=== PATIENT | female | born 1990 ===

== ENCOUNTER 2017-09-20 03:25 | Emergency (ER) | payer SELFPAY ==
--- NOTE | 2017-09-20 06:33 | C.PDOC ---
Time Seen by Provider: 09/20/17 03:42 Chief Complaint (Nursing): Substance Abuse History Per: Patient, EMS History/Exam Limitations: intoxication Onset/Duration Of Symptoms: Unknown Current Symptoms Are (Timing): Still Present Modifying Factor(s): Alcohol, Cocaine Severity: Severe Associated Symptoms: Agitation Additional History Per: Prior Records Past Medical History Reviewed: Historical Data, Nursing Documentation, Vital Signs Vital Signs: Last Vital Signs Temp Pulse 138 H 09/20/17 05:22 Resp 20 09/20/17 05:22 BP 130/82 09/20/17 05:22 Pulse Ox 95 09/20/17 05:22 - Medical History PMH: No Chronic Diseases Family History: States: Unknown Family Hx - Social History Hx Alcohol Use: Yes Hx Substance Use: Yes Review Of Systems Review Of Systems: ROS cannot be obtained secondary to pt's inabilty to answer questions. (Pt is uncooperative) Physical Exam - Physical Exam Appears: Combative, Agitated, Other (Uncooperative) Skin: Normal Color, Warm, Diaphoretic, No Rash Head: Atraumatic, Normacephalic Eye(s): bilateral: Abnormal Pupil (dilated, but equal and reactive) Neck: Normal ROM, Supple Cardiovascular: Rhythm Regular (tachycardia) Respiratory: Normal Breath Sounds, No Accessory Muscle Use Gastrointestinal/Abdominal: Soft, No Tenderness Extremity: Normal ROM, No Deformity Neurological/Psych: Inappropriate Response To Command, Other (Moving all extremities) ED Course And Treatment O2 Sat by Pulse Oximetry: 95 Pulse Ox Interpretation: Normal Progress Note: After Ativan, pt is now calm and cooperative. AAOx3. Steady gait. She is requesting discharge home. Reevaluation Time: 06:35 Reassessment Condition: Improved Disposition Counseled Patient/Family Regarding: Diagnosis, Need For Followup - Disposition Referrals: at [facility] [place] [Outside] Disposition: HOME/ ROUTINE Disposition Time: 06:35 Condition: IMPROVED Additional Instructions: Avoid alcohol and illicit drugs. Follow up in the clinic. Return to the ER if you develop suicidal or homicidal thoughts, worsening of symptoms or if you have any other concerns. Instructions: Polysubstance Abuse (DC) Print Language: ARABIC - Clinical Impression Clinical Impression: Polysubstance abuse
[2017-09-20 06:47] VITALS: BP 144/89; PULSE 99; RESP 18; O2SAT 99
== END 2017-09-20 06:58 | disposition home or self-care (01) ==
LOC: C.ER 03:25 → EDBD 03:25 → C.ER 06:58
DX: F19.10 Other psychoactive substance abuse, uncomplicated (principal)
CPT/HCPCS: 96372; 99284; J2060